=== PATIENT | female | born 1950 | race Caucasian/White ===

== ENCOUNTER 2016-11-06 05:12 | Inpatient (IN) ==
--- NOTE | 2016-11-02 14:23 | EKG Report ---
Stationary ECG Study [facility] Test Date: 11/02/2016 2:22:57 PM Pat Name: ALFREDO BARKER Department: Room: Gender: F Epidemiologist: ELYSE BLAKE 11-06-16 : 1950 Requested by: Adarsh Cantrell Order Number: [id number] Aj MD: COOPER MARTINEZ Intervals [place] Rate: 48 P: 69 ME: 146 QRS: -15 QRSD: 100 T: 30 QT: 473 QTc: 440 Interpretive Statements SINUS BRADYCARDIA Electronically Signed On 11-02-16 15:22:22 CDT by COOPER MARTINEZ [email or web address]
[2016-11-02 14:48] LABS: Apearance,Urine CLEAR (Clear); Bacteria,Urine Occasional /HPF (Few); Basophils % 0.2 % (0.0-0.8); Bilirubin,Urine Negative (Negative); Blood, Urine Negative (Negative); Eosinophils % 0.3 % (0.00-10.9); Glucose,Urine (UA) Negative (Negative); Hematocrit 38.3 VOL% (35.7-47.0); Hemoglobin 12.6 GM/DL (12.0-16.0); Immature Granulocytes % 0.3 %; Immature Granulocytes Absolute 0.03 #; Ketones,Urine Negative (Negative); Lymphocytes # 1.9 10*3/uL (1.4-4.0); Lymphocytes % 21.7 % (21.3-54.2); Mean Corpuscular HGB Conc 32.9 GM/DL (32-36); Mean Corpuscular Hemoglobin 31 PG (27-34); Mean Corpuscular Volume 92.7 FL (87-102); Mean Platelet Volume 12.4 FL (9.6-12.0); Monocytes # 0.4 10*3/uL (0.11-0.8); Monocytes % 4.8 % (1.7-12.7); Mucus,Urine Occasional /LPF (Occasional); Neutrophils # 6.5 10*3/uL (1.4-7.4); Neutrophils % 72.7 % (38.7-73.9); Nitrite,Urine Negative (Negative); Platelet Count 155 T/CUMM (130-400); Protein,Urine Negative; Red Blood Count 4.13 MC/CUMM (3.8-5.5); Red Cell Distribution Width 15.3 % (9.3-17.3); Squamous Epithelial Cell,Urine Occasional /HPF (0-10); Urine Color Yellow (Yellow); Urine Specific Gravity 1.008 (1.001-1.035); Urine Urobilinogen < 2.0 EU/DL (0.2-1.0); WBC,Urine 1 /HPF (0-6); White Blood Count 8.9 T/CUMM (4-12)
[2016-11-02 15:00] LABS: PT Patient Result 10.7 SECS; Partial Thromboplastin Time 29.2 SECS (0-40)
--- NOTE | 2016-11-02 15:25 | XRay Report ---
History: Respiratory preop evaluation Date: 11/02/2016 Study: Chest x-ray PA and lateral Comparison exam: No previous chest x-ray available The cardiac silhouette is upper normal in size. There is no mediastinal mass. There is mild aortic arch calcification. The pulmonary vasculature is not engorged. There is no pleural effusion. There is no confluent infiltrate. There is a calcified granuloma in the right lower lung. There is no pleural effusion. There is mild thoracic spondylosis. Impression: No acute cardiopulmonary process PROCEDURE INTERPRETED AT [facility] DEPARTMENT OF RADIOLOGY Final Report Signed by: Dr. Lucina Silva
[2016-11-02 15:28] LABS: Alanine Aminotransferase 18 U/L (13-56); Albumin 3.5 G/DL (3.4-5.0); Alkaline Phosphatase 82 U/L (45-117); Aspartate Amino Transferase 15 U/L (0-37); Bilirubin,Total < 0.39 MG/DL (0.2-1.0); Blood Urea Nitrogen 10 MG/DL (7-18); Glucose 97 MG/DL (74-106); Osmolality,Calculated 277.4 MOS/KG (273-304); Potassium 4.6 MMOL/L (3.5-5.1); Sodium 140 MMOL/L (136-145); Total Protein 6.7 G/DL (6.4-8.3)
[2016-11-06] MEDS ORDERED: VANCOMYCIN INJ 1,000 MG in SODIUM CHLORIDE 0.9% 250 ML IV ONE (06:00)
[2016-11-06] MEDS ORDERED: VANCOMYCIN 1,000 MG VIAL ONE (06:01)
[2016-11-06] MEDS ORDERED: ceFAZolin 1,000 MG VIAL ONE (06:02)
[2016-11-06] MEDS ORDERED: SODIUM CHLORIDE 0.9% 100 ML IV ONE (06:02)
--- NOTE | 2016-11-06 06:44 | History and Physical Update ---
History and Physical Update - History and Physical H&P was reviewed, the patient examined and there: are no changes in the patients condition since last H&P was completed.
[2016-11-06] MEDS ORDERED: LORazepam 1 MG TABLET ONE (06:59)
[2016-11-06] MEDS ORDERED: FAMOTIDINE 20 MG TABLET ONE (06:59)
[2016-11-06] MEDS ORDERED: LORazepam 1 MG TABLET PO ONE (07:00)
[2016-11-06] MEDS ORDERED: FAMOTIDINE 20 MG TABLET PO ONE (07:00)
[2016-11-06] MEDS ORDERED: ROPIVACAINE 0.5% 30 ML VIAL ONE (07:20)
[2016-11-06] MEDS ORDERED: LACTATED RINGERS 1,000 ML IV SCH (08:00)
[2016-11-06] MEDS ORDERED: BACITRACIN OINT 0.9 GM PACK TOP ONE (09:05)
[2016-11-06] MEDS ORDERED: fentaNYL 100 MCG/2 ML VIAL ONE ×2 (09:51→12:30)
[2016-11-06] MEDS ORDERED: MIDAZOLAM 2 MG/2 ML VIAL ONE ×2 (09:51→12:30)
[2016-11-06] MEDS ORDERED: PHENYLEPHRINE 50 MG/5 ML VIAL ONE (10:27)
[2016-11-06] MEDS ORDERED: LIDOCAINE 1% 5 ML VIAL ONE (10:27)
[2016-11-06] MEDS ORDERED: PROPOFOL 200 MG/20 ML VIAL IV ONE (10:27)
[2016-11-06] MEDS ORDERED: ROCURONIUM 100 MG/10 ML VIAL IV ONE (10:27)
[2016-11-06] MEDS ORDERED: TRANEXAMIC ACID 1,000 MG/10 ML VIAL IV ONE (10:58)
[2016-11-06] MEDS ORDERED: ONDANSETRON 4 MG TABLET PO PRN (12:08)
[2016-11-06] MEDS ORDERED: LISINOPRIL/HCTZ 20-12.5 MG TABLET PO PRN (12:08)
[2016-11-06] MEDS ORDERED: MORPHINE 2 MG/1 ML SYRINGE IV PRN (12:09)
[2016-11-06] MEDS ORDERED: MAGNESIUM HYDROXIDE SUSP 30 ML UDCUP PO PRN (12:09)
[2016-11-06] MEDS ORDERED: ONDANSETRON 4 MG/2 ML VIAL IV PRN (12:09)
[2016-11-06] MEDS ORDERED: ACETAMINOPHEN 325 MG TABLET PO PRN (12:09)
--- NOTE | 2016-11-06 12:16 | Operative Note ---
Date of procedure: 11/06/16 Procedure: Diagnosis: Right shoulder rotator cuff arthropathy Procedure: Right reverse total shoulder arthroplasty Surgeon: Ania Tow Truck Driver: John Anesthesia: General with an interscalene block Procedure and findings: After adequate anesthesia was induced, the patient was prepped and draped in usual sterile fashion in a beachchair position. A deltopectoral approach was made. Deltoid and cephalic vein were retracted laterally pectoralis major and strap muscles were retracted medially. The anterior circumflex vessels were cauterized. Long head of the biceps tendon was identified. Subscapularis was released subperiosteally. The humeral head was exposed and dislocated. Proximal humerus was sequentially reamed. Humeral head was resected in approximately 0 version. Osteophytes were resected. Axillary nerve was protected throughout the procedure. Glenoid was exposed and labrum was resected. Guidepin was placed and overreamed. Center hole was placed at the straight reamer. Metaglene cementless was placed and secured with patient 1 superior locking screws and 2 inferior and posterior standard screws. An offset 38 mm glenosphere was placed. The proximal humerus was prepared for a 12 size 1 eccentric. Components were trialed. The final components was implanted. A 38+3 mm polyethylene insert was placed. Scapularis was repaired to the proximal humerus with multiple #2 Tycron sutures. The deltopectoral interval was approximated with 0 [id number] Vicryl sutures. Subcutaneous tissue was approximated with 3-0 Vicryl suture. Skin was approximated with natanael. Bacitracin and sterile dressing were was applied. An UltraSling was placed. Surgeon / Physician: Adarsh Jorge Jr. Results - Labs CBC & BMP: 11/02/16 14:37 11/02/16 14:37 Discharge Plan - Discharge Medications No Action Omeprazole [Prilosec] 20 mg PO BID predniSONE TAB [PredniSONE] 5 mg PO DIRECTED Baclofen Tab [Lioresal] 10 mg PO BID Calcium Carbonate/Vitamin D3 [Calcium 600-Vit D3 800 Tablet] 1 each PO DAILY Sertraline HCl 25 mg PO DAILY Montelukast Tab [Singulair Tab] 10 mg PO BEDTIME Gabapentin Cap/Tab [Neurontin Cap/Tab] 100 mg PO DAILY Ciprofloxacin HCl [Ciprofloxacin Tab] 500 mg PO DAILY Ondansetron Tab [Zofran Tab] 4 mg PO DIRECTED PRN PRN Reason: Nausea Levothyroxine Tab [Synthroid Tab] 100 mcg PO BEDTIME Estradiol Tab [Estrace Tab] 1 mg PO DAILY Tramadol HCl [Ultram] 50 mg PO BID Lisinopril/Hydrochlorothiazide [Lisinopril-Hctz 20-12.5 mg Tab] 1 each PO DIRECTED PRN PRN Reason: BP - Follow Up or Referral - Forms/Instructions
[2016-11-06] MEDS ORDERED: DESFLURANE 1 UNIT/15 MINUTE INH ONE (12:29)
[2016-11-06] MEDS ORDERED: predniSONE 5 MG TABLET PO SCH (12:30)
[2016-11-06] MEDS: LACTATED RINGERS 1,000 ML IV SCH (13:16)
--- NOTE | 2016-11-06 13:44 | Anesthesia Post-Op ---
Anesthesia Post OP - Post Ansesthetic Evaluation Patient seen in post op: Yes Resp: within normal limits CV: within normal limits Mental: within normal limits Temp: within normal limits [id number]: within normal limits Nausea and Vomiting: within normal limits Pain: within normal limits
--- NOTE | 2016-11-06 14:36 | Orthopedic Progress Note ---
Orthopedics - Subjective Interval history: Mrs Peacock is comfortable. Her right eye is a little bloodshot and has very mild periorbital edema. No double or blurred vision. Eye tracks appropriately. Dressing is c/d/i. R hand is nv intact. Watch eye for now. O/W continue with orders. Exam - Constitutional Vitals: Period Temp Pulse Resp BP Sys/Flowers Pulse Ox Last 24 Hr 97.0 F-97.8 F 50-70 14-22 117-154/69-90 94-99 Results - Labs CBC & BMP: 11/02/16 14:37 11/02/16 14:37 Quality Measures - VTE Contraindication to Pharmacological VTE Prophylaxis: Clinical assessment deems Pt at low risk, no prophalaxis needed
--- NOTE | 2016-11-06 16:04 | XRay Report ---
Exam: XR shoulder 1V RT Date: 11/06/2016 1:33 PM Comparison: None Indication: Postop right shoulder replacement Technique:[AP right shoulder] Findings: Recent right shoulder replacement with postoperative findings. Persistent degenerative changes. Calcified granuloma. Impression: Recent satisfactory right shoulder replacement with postoperative findings. No fracture or dislocation. PROCEDURE INTERPRETED AT [facility] DEPARTMENT OF RADIOLOGY Final Report Signed by: Dr. Felisha López
[2016-11-06] MEDS: PANTOPRAZOLE 40 MG TABLET PO SCH (20:55)
[2016-11-06] MEDS: MONTELUKAST 10 MG TABLET PO SCH (20:55)
[2016-11-06] MEDS: BACLOFEN 10 MG TABLET PO SCH (20:55)
[2016-11-06] MEDS: LEVOTHYROXINE 100 MCG TABLET PO SCH (20:55)
[2016-11-06] MEDS ORDERED: VANCOMYCIN INJ 1,000 MG in SODIUM CHLORIDE 0.9% 250 ML IV SCH (21:45)
[2016-11-07] MEDS: MORPHINE 2 MG/1 ML SYRINGE IV PRN ×2 (00:41→07:25)
[2016-11-07] MEDS: LACTATED RINGERS 1,000 ML IV SCH ×2 (00:47→14:17)
[2016-11-07 07:12] LABS: Calcium 8.1 MG/DL (8.5-10.1); Osmolality,Calculated 270.8 MOS/KG (273-304); Potassium 3.8 MMOL/L (3.5-5.1)
--- NOTE | 2016-11-07 07:24 | Orthopedic Progress Note ---
Orthopedics - Subjective Interval history: Ms. Peacock is uncomfortable this morning. Her block wore off last night and she has been having problems with pain control. Dressing is clean, dry and intact. Right upper extremities neurovascularly unchanged. Postop x-ray shows interval RSA placement. Plan: Morphine and Toradol IV now. Will watch through the day. Mobilize with physical therapy. Patient may remove sling to feed and brush her teeth. Exam - Constitutional Vitals: Period Temp Pulse Resp BP Sys/Flowers Pulse Ox Last 24 Hr 97.0 F-99.9 F 50-81 14-22 117-156/61-90 92-99 Results - Labs CBC & BMP: 11/02/16 14:37 11/07/16 06:22 Quality Measures - VTE Contraindication to Pharmacological VTE Prophylaxis: Clinical assessment deems Pt at low risk, no prophalaxis needed
[2016-11-07] MEDS: KETOROLAC 30 MG/1 ML VIAL IV PRN (07:27)
[2016-11-07 07:28] LABS: Basophils % 0.1 % (0.0-0.8); Eosinophils % 0.1 % (0.00-10.9); Hematocrit 36.7 VOL% (35.7-47.0); Hemoglobin 12.3 GM/DL (12.0-16.0); Immature Granulocytes % 0.4 %; Immature Granulocytes Absolute 0.05 #; Lymphocytes # 2.6 10*3/uL (1.4-4.0); Lymphocytes % 18.7 % (21.3-54.2); Mean Corpuscular HGB Conc 33.5 GM/DL (32-36); Mean Corpuscular Hemoglobin 31 PG (27-34); Mean Corpuscular Volume 91.8 FL (87-102); Mean Platelet Volume 11.7 FL (9.6-12.0); Monocytes # 1.4 10*3/uL (0.11-0.8); Monocytes % 9.9 % (1.7-12.7); Neutrophils # 9.8 10*3/uL (1.4-7.4); Neutrophils % 70.8 % (38.7-73.9); Platelet Count 117 T/CUMM (130-400); Red Cell Distribution Width 14.9 % (9.3-17.3); White Blood Count 13.9 T/CUMM (4-12)
[2016-11-07] MEDS: CIPROFLOXACIN 500 MG TABLET PO SCH (10:06)
[2016-11-07] MEDS: ESTRADIOL 1 MG TABLET PO SCH (10:06)
[2016-11-07] MEDS: CALCIUM (CARBONATE)/VITAMIN D 600 MG-400 UNIT TABLET PO SCH (10:06)
[2016-11-07] MEDS: SERTRALINE 50 MG TABLET PO SCH (10:07)
[2016-11-07] MEDS: BACLOFEN 10 MG TABLET PO SCH ×2 (10:07→20:00)
[2016-11-07] MEDS: GABAPENTIN 100 MG CAPSULE PO SCH (10:07)
[2016-11-07] MEDS: PANTOPRAZOLE 40 MG TABLET PO SCH ×2 (10:07→20:00)
--- NOTE | 2016-11-07 12:26 | Pathology Report from [facility] ---
[facility] ACCESSION # : [id number] PATIENT NAME : Meera Barker ORDERING DR : SONG BLAKE MD CLINICAL HX: Right shoulder rotator cuff arthropathy POST-OP DX: Same SPECIMEN INFO: Right shoulder bone and tissue GROSS DESCRIPTION: The specimen is received in formalin labeled with the patients name and consists of a femoral head measuring 3.8 x 4.0 x 0.8 cm with marked bony eburnation seen. Cut surfaces are smooth with no softening appreciated. Received separately in the container are fragments of hemorrhagic bone measuring 3.5 x 2.0 cm collectively. Boat Rental Clerk tissue submitted in one cassette following decalcification. DIAGNOSIS FOR MEERA BARKER: RIGHT SHOULDER BONE & TISSUE: Trabecular bone with fatty marrow. No evidence of malignancy. COLLECTED DATE: 11/06/2016 [facility] REPORT DATE: 11/07/2016 ELECTRONICALLY SIGNED BY: Emelyn Mcpherson III, M.D. 11/07/2016 - 8:36:09 [email or web address]
--- NOTE | 2016-11-07 17:31 | Orthopedic Progress Note ---
Orthopedics - Subjective Interval history: Mrs. Peacock is much more comfortable this evening. Dressing is clean, dry and intact. Right upper extremities neurovascularly intact. Plan: Plan discharge tomorrow. Exam - Constitutional Vitals: Period Temp Pulse Resp BP Sys/Flowers Pulse Ox Last 24 Hr 97.7 F-100.9 F 65-77 18-20 124-166/69-90 90-96 Results - Labs CBC & BMP: 11/07/16 07:22 11/07/16 06:22 Quality Measures - VTE Contraindication to Pharmacological VTE Prophylaxis: Clinical assessment deems Pt at low risk, no prophalaxis needed
[2016-11-07] MEDS: LEVOTHYROXINE 100 MCG TABLET PO SCH (20:00)
[2016-11-07] MEDS: MONTELUKAST 10 MG TABLET PO SCH (20:00)
[2016-11-08] MEDS: KETOROLAC 30 MG/1 ML VIAL IV PRN (03:49)
--- NOTE | 2016-11-08 06:19 | Discharge Summary ---
Hospital Course - Hospital Course Hospital Course: Meera Peacock was admitted after undergoing an uncomplicated right reverse shoulder arthroplasty. She received perioperative antimicrobial prophylaxis. She received physical therapy. She was discharged home postoperative day #2 in stable condition. Wound is clean, dry and intact. Right upper extremities neurovascularly unchanged. Discharge Plan - Discharge Data Disposition: Disch To Home/Self Care Condition at Discharge: Stable Discharge Diet: advance to your usual diet Hygiene: may shower Driving: not until seen by doctor - Discharge Medications Continue Omeprazole [Prilosec] 20 mg PO BID predniSONE TAB [PredniSONE] 5 mg PO DAILY Baclofen Tab [Lioresal] 10 mg PO BID Calcium Carbonate/Vitamin D3 [Calcium 600-Vit D3 800 Tablet] 1 each PO DAILY Sertraline HCl 50 mg PO DAILY Montelukast Tab [Singulair Tab] 10 mg PO BEDTIME Gabapentin Cap/Tab [Neurontin Cap/Tab] 100 mg PO DAILY Ciprofloxacin HCl [Ciprofloxacin Tab] 500 mg PO DAILY Levothyroxine Tab [Synthroid Tab] 100 mcg PO BEDTIME Estradiol Tab [Estrace Tab] 1 mg PO DAILY Tramadol HCl [Ultram] 50 mg PO BID Lisinopril/Hydrochlorothiazide [Lisinopril-Hctz 20-12.5 mg Tab] 1 each PO DAILY PRN PRN Reason: Blood Pressure-Increased - Follow Up or Referral - Forms/Instructions Additional Discharge Instructions: Daily dry dressing changes to right shoulder. Wear abduction sling at night and out of the house. Pendulums 3 times daily. Anterior shoulder precautions. Keep hand and elbow in front of body. May use right upper extremity to feed and room. Prescription for Rodney 7.5 with 30 tablets was written. Follow-up appointment 7-10 days. Exam - Constitutional Vitals: Period Temp Pulse Resp BP Sys/Flowers Pulse Ox Last 24 Hr 97.7 F-100.9 F 63-71 18-21 131-166/66-90 90-98 Discharge Results Labs on day of discharge: Labs from last 24 hours 11/07/16 11/07/16 07:22 06:22 WBC 13.9 H RBC 4.00 Hgb 12.3 Hct 36.7 MCV 91.8 MCH 31 MCHC 33.5 RDW 14.9 Plt Count 117 L MPV 11.7 Neut % (Auto) 70.8 Lymph % (Auto) 18.7 L Burke % (Auto) 9.9 Eos % (Auto) 0.1 Baso % (Auto) 0.1 Neut # (Auto) 9.8 H Lymph # (Auto) 2.6 Burke # (Auto) 1.4 H Eos # (Auto) 0.0 Baso # (Auto) 0.0 Immature Gran % 0.4 Nucleated RBC % 0.0 Immature Gran # 0.05 Nucleated RBCs # 0.00 Sodium 137 Potassium 3.8 Chloride 103 Carbon Dioxide 25 Anion Gap 12.8 BUN 4 L Creatinine 0.50 L GFR Calculation 108 BUN/Creatinine Ratio 8.00 Glucose 117 H Calculated Osmolality 270.8 L Calcium 8.1 L DS: Provider Date of admission: 11/06/16 05:12 Primary care physician: Tesfaye Patel MD Attending physician on admission: Adarsh Jorge Jr., Consults: 11/06/16 12:09 Consult to Physical Therapy [CONS] Routine Reason for Physical Therapy: Evaluate and Treat Start Therapy: Today Consult Comment: shivani wisdom 11/06/16 15:15 Consult to Pastoral Services [CONS] Routine Comment: Pastoral Screen: Request Audit Spec Visit Pastoral Screen Source of Request: Patient Discharging clinician: Adarsh Jorge Jr., Expected date of discharge: 11/08/16
[2016-11-08] MEDS: PANTOPRAZOLE 40 MG TABLET PO SCH (10:06)
[2016-11-08] MEDS: ESTRADIOL 1 MG TABLET PO SCH (10:06)
[2016-11-08] MEDS: BACLOFEN 10 MG TABLET PO SCH (10:06)
[2016-11-08] MEDS: CIPROFLOXACIN 500 MG TABLET PO SCH (10:07)
[2016-11-08] MEDS: SERTRALINE 50 MG TABLET PO SCH (10:07)
[2016-11-08] MEDS: CALCIUM (CARBONATE)/VITAMIN D 600 MG-400 UNIT TABLET PO SCH (10:07)
[2016-11-08] MEDS: GABAPENTIN 100 MG CAPSULE PO SCH (10:07)
[2016-11-08 11:03] VITALS: BP 115/73
== END 2016-11-08 11:25 | disposition home or self-care (01) | DRG 483 ==
LOC: N.SDSINP 05:12 → N.3E 11:38
PROVIDERS: ADMIT Orthopaedic Surgery; ATTEND Orthopaedic Surgery